=== PATIENT | female | born 1975 | race Caucasian/White ===

== ENCOUNTER 2018-06-24 10:23 | Emergency (ER) | payer SELFPAY ==
[2018-06-24 10:43] VITALS: BP 132/77
--- NOTE | 2018-06-24 11:07 | UC ---
Abdominal Pain Female HPI - HPI Summary HPI Summary: Pt c/o pelvic discomfort and pain that began 2 days ago and has improved since onset. Pt has hx of ovarian cysts. Pt denies urinary symptoms and denies risk of STDs, or , and GI disorders. P t was seen by PCP and had pelvic exam at last appointment. Has vaginal ultrasound scheduled for next week. - History of Current Complaint Chief Complaint: UCAbdominalPain Stated Complaint: GROIN COMPLAINT Time Seen by Provider: 06/24/18 10:47 Hx Obtained From: Patient Hx Last Menstrual Period: 06/17/18 ?: No Onset/Duration: Sudden Onset, Lasting Days, Resolved Timing: Constant Severity Initially: Severe Severity Currently: Mild Pain Intensity: 4 Location: Suprapubic Radiates: Yes Radiates to: LLQ, RLQ, Inguinal Character: Colicy, Cramping, Dull Aggravating Factor(s): Nothing Alleviating Factor(s): OTC Analgesics Associated Signs and Symptoms: Positive: Negative - Risk Factors Ectopic Risk Factor: Negative Allergies/Adverse Reactions: Allergies Allergy/AdvReac Type Severity Reaction Status Date / Time No Known Allergies Allergy Verified 06/24/18 10:39 Home Medications: Home Medications Ibuprofen TAB* [Advil TAB*] 400 mg PO Q6H PRN 06/24/18 [History Confirmed ] PMH/Surg Hx/FS Hx/Imm Hx Previously Healthy: Yes - Surgical History Surgical History: None - Family History Known Family History: Positive: Cardiac Disease - Social History Occupation: Employed Full-time Lives: With Family Alcohol Use: None Substance Use Type: None Smoking Status (MU): Never Smoked Tobacco Have You Smoked in the Last Year: No Review of Systems Constitutional: Negative Skin: Negative Eyes: Negative ENT: Negative Respiratory: Negative Cardiovascular: Negative Gastrointestinal: Abdominal Pain, Other - groin/pelvic discomfort, suprapubic tenderness Genitourinary: Negative Motor: Negative Neurovascular: Negative Musculoskeletal: Negative Neurological: Negative Psychological: Negative Is Patient Immunocompromised?: No All Other Systems Reviewed And Are Negative: Yes Physical Exam Triage Information Reviewed: Yes Appearance: Well-Appearing Vital Signs: Initial Vital Signs Temp 98.5 F 06/24/18 10:40 Pulse 88 06/24/18 10:40 Resp 18 06/24/18 10:40 BP 132/77 06/24/18 10:40 Pulse Ox 99 06/24/18 10:40 Vital Signs Reviewed: Yes Eye Exam: Normal ENT Exam: Normal Dental Exam: Normal Neck exam: Normal Respiratory Exam: Normal Cardiovascular Exam: Normal Abdominal Exam: Other Abdomen Description: Positive: Other: - suprapubic tenderness Bowel Sounds: Positive: Present Pelvic Exam: Positive: Other - pt declined pelvic exam Musculoskeletal Exam: Normal Neurological Exam: Normal Psychological Exam: Normal Skin Exam: Normal Abd Pain Female Course/Dx - Differential Dx/Diagnosis Differential Diagnosis: Appendicitis, Ovarian Cyst, Pelvic Inflammatory Disease , Urinary Tract Infection Provider Diagnoses: abdominal pain Discharge - Sign-Out/Discharge Documenting (check all that apply): Patient Departure - Discharge Plan Condition: Stable Disposition: HOME Patient Education Materials: Pelvic Pain in Women (ED) Referrals: BONNY Ruiz [Primary Care Provider] - If Needed Additional Instructions: Please follow up with PCP or seek care at closest emergency room if symptoms do not improve or worsen. You have indicated that you have an appointment for further testing in one week. Please keep that appointment. Per institutional requirements, I have reviewed the chart, however, I was not consulted specifically or made aware of this patient by the above midlevel provider. I did not personally evaluate, interact with , or disposition this patie - Billing Disposition and Condition Condition: STABLE Disposition: Home
== END 2018-06-24 11:14 | disposition home or self-care (01) ==
LOC: UCCORT 10:23
DX: R10.9 Unspecified abdominal pain (principal); R10.2 Pelvic and perineal pain; Z87.898 Personal history of other specified conditions
CPT/HCPCS: 81003; 87086; 87491; 87591; 99211; G0463